=== PATIENT | male | born 2000 | race African-American/Black ===

== ENCOUNTER 2021-02-07 17:01 | Emergency (ER) | payer OTHER, SELFPAY ==
[2021-02-07 17:15] VITALS: BP 156/94; PULSE 95; RESP 18; TEMP 36.6; O2SAT 98; BMI 35.5
--- NOTE | 2021-02-07 19:33 | ED_ITS ---
HPI - Skin/Abscess/Foreign Bdy <Madison Duffy PA-C - Last Filed: 02/07/21 19:38> General Chief complaint: Skin/Abscess/Foreign Body Stated complaint: Allergic Reaction, Discoloration of the Skin Time Seen by Provider: 02/07/21 17:50 Source: patient Mode of arrival: Ambulatory Limitations: no limitations History of Present Illness HPI narrative: 21-year-old male who presents to the ER complaining of rash to the bilateral knuckles that has been ongoing for the last 8 days. Denies for erythema, itching. States he has been using topical hydrocortisone over the last 2 days without relief. He works as a mechanical design drafter and reported rash after contact with products. Related Data Previous Rx's Medication Instructions Recorded triamcinolone acetonide 0.025 % 1 applic TOPICAL BID PRN #15 g 02/07/21 topical ointment Allergies Allergy/AdvReac Type Severity Reaction Status Date / Time No Known Drug Allergies Allergy Verified 02/07/21 17:18 Review of Systems <Madison Duffy PA-C - Last Filed: 02/07/21 19:38> Review of Systems Narrative: General: denies fever, chills MSK: denies joint pain, muscle weakness Skin: Reports rash, denies itching Neuro: denies numbness, tingling Patient History <Madison Duffy PA-C - Last Filed: 02/07/21 19:38> Social History Smoking Status: Current every day smoker Smoking Status: Current every day smoker alcohol intake frequency: a few times a month Substance Use Type: does not use Exam <Madison Duffy PA-C - Last Filed: 02/07/21 19:38> Narrative Exam Narrative: Independently reviewed vitals signs and nursing notes. General: Awake, alert, nontoxic, no cardiorespiratory distress Head/Neck: Atraumatic, neck full range of motion Eyes: EOMI, conjunctiva normal Nose: nares patent, no rhinorrhea Cardio: Regular rate and rhythm, no peripheral edema Respiratory: respirations unlabored without wheezing, stridor, or rales. No retractions. GI: Abdomen soft, nontender MSK: Moves all extremities, neurovascularly intact Skin: Normal capillary refill, mild discoloration and dry skin overlying the bilateral dorsal aspects of the MCP joints. No interdigital rash or erythema. No signs of secondary bacterial or infection. Neuro: Normal speech and cognition, normal gait Initial Vital Signs Initial Vital Signs: Vital Signs Temperature 98 F 02/07/21 17:15 Pulse Rate 95 H 02/07/21 17:15 Respiratory Rate 18 02/07/21 17:15 Blood Pressure 156/94 H 02/07/21 17:15 Pulse Oximetry 98 02/07/21 17:15 <Cezar Douglas MD - Last Filed: 04/05/21 07:45> Initial Vital Signs Initial Vital Signs: Vital Signs Temperature 98 F 02/07/21 17:15 Pulse Rate 95 H 02/07/21 17:15 Respiratory Rate 18 02/07/21 17:15 Blood Pressure 156/94 H 02/07/21 17:15 Pulse Oximetry 98 02/07/21 17:15 Course <Madison Duffy PA-C - Last Filed: 02/07/21 19:38> Vital Signs Vital signs: Vital Signs - 8 hr 02/07/21 17:15 Temperature 98 F Pulse Rate 95 H Respiratory Rate 18 Blood Pressure 156/94 H Pulse Oximetry 98 <Cezar Douglas MD - Last Filed: 04/05/21 07:45> Vital Signs Vital signs: Vital Signs - 8 hr 02/07/21 17:15 Temperature 98 F Pulse Rate 95 H Respiratory Rate 18 Blood Pressure 156/94 H Pulse Oximetry 98 MDM - Skin/Abscess/Foreign Bdy <Madison Duffy PA-C - Last Filed: 02/07/21 19:38> MDM Narrative Medical decision making narrative: 21-year-old male with most likely contact dermatitis secondary to fuel with discoloration and dry skin to bilateral knuckles. No evidence of secondary infection. Prescribed triamcinolone ointment and recommended topical emollients in addition to avoidance/prompt removal of irritant. Please follow up with PCP as directed. Return to clinic/ER precautions discussed with patient for new, not-improving, or worsening symptoms. Discharge Plan Departure Patient Disposition: Home Clinical Impression: Dermatitis Instructions: DI for Atopic Dermatitis-Adult Activity Restrictions/Additional Instructions: *You have been diagnosed with [dermatitis] *What to do: [X] New medication prescriptions sent to your pharmacy: [[facility] [place]] [ ] New medication written as a paper prescription [ ] No new medications given * Please follow-up with your primary care provider in 5-7 days, call for an appointment. Let them know you were seen in the emergency department and that we ask you to be seen in follow-up. * If you do not have a primary care provider, please contact the [facility] Resource line at [phone]. They will ask some questions about your medical history and help to get up with a doctor in the community. * Return to the if you should have any new, worsening, or concerning symptoms, such as [ ]. Prescriptions: New triamcinolone acetonide 0.025 % ointment 1 applic topical BID PRN (Reason: rash) Qty: 15 RF: 0
== END 2021-02-07 18:00 | disposition home or self-care (01) ==
PROVIDERS: Emergency Provider Physician Assistant
DX: L30.9 Dermatitis, unspecified (principal)
CPT/HCPCS: 99281

== ENCOUNTER 2022-04-15 07:43 | Emergency (ER) | payer OTHER, SELFPAY ==
[2022-04-15 08:01] VITALS: BP 167/107; PULSE 84; RESP 20; TEMP 36.8; O2SAT 97; BMI 32.4
--- NOTE | 2022-04-15 08:03 | ED_ITS ---
HPI - General Adult General Chief complaint: Abdominal Pain Stated complaint: black poop Time Seen by Provider: 04/15/22 07:53 Source: patient Mode of arrival: Ambulatory Limitations: no limitations History of Present Illness HPI narrative: Patient is a 22-year-old male who is here for evaluation of approximately 4-6 weeks of left upper quadrant abdominal discomfort and diarrhea and constipation and now having black-colored stools this morning. He states that he does vomit on a regular basis. He states that he ?can not digest food ?all of the symptoms been going on during the past 4-6 weeks. No prior abdominal surgeries. He contacted his medical department and because he was having constipation at the t nancy was placed on MiraLax. He denies nonsteroidal anti-inflammatory use. Is not on any anticoagulation. Does drink on the weekends. Is an otherwise healthy individual. Related Data Previous Rx's Medication Instructions Recorded triamcinolone acetonide 0.025 % 1 applic topical BID PRN rash #15 02/07/21 topical ointment grams ondansetron 4 mg disintegrating 4 mg PO Q6H PRN nausea and 04/15/22 tablet vomiting #14 tabs Allergies Allergy/AdvReac Type Severity Reaction Status Date / Time No Known Drug Allergies Allergy Verified 02/07/21 17:18 Review of Systems Constitutional Constitutional: Reports system reviewed and no additional complaints, except as documented Gastrointestinal Gastrointestinal: Reports system reviewed and no additional complaints, except as documented Genitourinary Genitourinary: Reports system reviewed and no additional complaints, except as documented Musculoskeletal Musculoskeletal: Reports system reviewed and no additional complaints, except as documented Integumentary/Breasts Skin/Breast: Reports system reviewed and no additional complaints, except as documented Hematologic/Lymphatic On Anticoagulants: No Patient History Medical History Healthy adult Social History Smoking Status: Current every day smoker Smoking Status: Current every day smoker alcohol intake frequency: a few times a month Substance Use Type: does not use Exam Initial Vital Signs Initial Vital Signs: Vital Signs Temperature 98.2 F 04/15/22 08:01 Pulse Rate 84 04/15/22 08:01 Respiratory Rate 20 04/15/22 08:01 Blood Pressure 167/107 H 04/15/22 08:01 Pulse Oximetry 97 11/08/22 08:01 Oxygen Delivery Method 04/15/22 08:01 Const General: cooperative and comfortable HENMT Head: normal to inspection and normocephalic Resp Effort & Inspection: normal respiratory effort Auscultation: clear to auscultation bilaterally Cardio Rate: regular rate Rhythm: regular rhythm GI Inspection: normal to inspection and non-distended Palpation: soft and No tender Rectal Exam: visual inspection normal and heme negative stool Skin General: no rashes or lesions noted Neuro General: patient alert, patient awake and moves all extremities Extrem General: normal to inspection and capillary refill normal Psych Appearance: grossly normal Course Orders Ordered: ED Orders 04/15/22 08:04 CT abdomen pelvis w con Stat Complete Blood Count AUTO DIFF Stat Comprehensive Metabolic Panel Stat Lipase Stat Discontinued Medications Sodium Chloride (Normal Saline 0.9%) 1,000 mls @ 1,000 mls/hr IV BOLUS ONE Stop: 04/15/22 09:02 Last Admin: 04/15/22 08:57 Dose: 1,000 mls/hr Vital Signs Vital signs: Vital Signs - 8 hr 04/15/22 08:01 Temperature 98.2 F Pulse Rate 84 Respiratory Rate 20 Blood Pressure 167/107 H Pulse Oximetry 97 Oxygen Delivery Method Room Air Medical Decision Making Lab Data Result diagrams: 04/15/22 08:08 04/15/22 08:08 Labs: Lab Results 04/15/22 04/15/22 Range/Units 08:08 08:08 WBC 4.6 (4.5-11.0) X10^3/uL RBC 4.92 (4.5-5.9) X10^6/uL Hgb 14.8 (13.5-17.5) g/dL Hct 44.3 (41-53) % MCV 90.0 (80-100) fL MCH 30.1 (26-34) PG MCHC 33.4 (30-36) % RDW 15.0 H (11.6-14.8) % Plt Count 229 (150-400) X10^3/uL Neut % (Auto) 51.1 (50-75) % Lymph % (Auto) 31.9 (25-40) % Crisp % (Auto) 14.1 H (3-14) % Eos % (Auto) 1.5 L (2-4) % Baso % (Auto) 1.4 (0-2) % Neut # (Auto) 2300 (2613-7558) /uL Lymph # (Auto) 1500 (1732-9933) /uL Crisp # (Auto) 600 (0-900) /uL Eos # (Auto) 100 (0-450) /uL Baso # (Auto) 100 (0-100) /uL Sodium 143 (137-145) mmol/L Potassium 4.0 (3.4-5.1) mmol/L Chloride 98 (98-107) mmol/L Carbon Dioxide 33 H (22-32) mmol/L BUN 8 L (9-20) mg/dL Creatinine 0.83 (0.66-1.25) mg/dL Estimated GFR > 60 (>60) mL/min BUN/Creatinine Ratio 9.6 (6-22) Glucose 98 (70-100) mg/dL Calcium 8.6 (8.4-10.2) mg/dL Total Bilirubin 0.3 (0.2-1.3) mg/dL AST 47 (17-59) IU/L ALT 31 (<50) IU/L Alkaline Phosphatase 62 (38-126) U/L Total Protein 7.6 (6.3-8.2) g/dL Albumin 4.2 (3.5-5.0) g/dL Globulin 3.4 (1.7-4.1) g/dL Albumin/Globulin Ratio 1.2 (1.0-2.8) Lipase 110 (23-300) U/L Imaging Data CT scan - abdomen/pelvis: Radiologist's Impression: [address] [address] [address] Scan Report Signed Patient: Adria Hastings MR#: [id number] : 2000 Acct:[id number] Age/Sex: 22 / M Date of Service: 04/15/22 Loc: ED Accession Number: [id number] ?? Procedure: CT abdomen pelvis w con Ordering Provider: Lg Morales D.O. PROCEDURE:? CT ABDOMEN PELVIS W CON ? INDICATIONS:? Left-sided abdominal pain with black colored stool ? TECHNIQUE:? After the administration of IV contrast, axial sections were acquired from the lung bases to the pubic symphysis.? Coronal and sagittal reformats were performed.? For radiation dose reduction, the following was used:? automated exposure control, adjustment of mA and/or kV according to patient size. ? COMPARISON:? None. ? FINDINGS:? Image quality:? Excellent.? ? Lung bases:? Unremarkable.? ? Heart:? No significant findings. ? ? ABDOMEN: Liver:? Liver is enlarged measuring 18 cm with diffuse steatosis.? ? Gallbladder:? Unremarkable.? ? Biliary ducts:? Unremarkable.? ? Pancreas:? Unremarkable.? ? Spleen:? Unremarkable.? ? Adrenal Glands:? Unremarkable.? ? Kidneys and Ureters:? Unremarkable.? ? ? Stomach and Bowel:? Stomach, small bowel loops, and colon are nonobstructive.? There is a diffuse appearance of rectal thickening best seen on series 2, image 78. There is a small focal area of descending colon seen on series 2, image 60 demonstrating thickening with very minimal pericolonic inflammatory change.? Peritoneum:? No abnormal intraperitoneal fluid.? No free air.? ? Ventral Wall: ? No hernia.? Abdominal Nodes:? No retroperitoneal or mesenteric adenopathy by size criteria.? Vessels:? Aorta and inferior vena cava are normal in size.? ? PELVIS: Pelvic Organs:? Unremarkable.? ? Bladder:? Unremarkable.? ? Pelvic Nodes: No enlarged lymph nodes.? Miscellaneous: No inguinal hernias are seen. ? ? ? Bones:? Unremarkable.? IMPRESSION:? ? Short segment loop of descending colon with very minimal appearance of pericolonic inflammatory change.? This could represent a small segment of colitis possibly secondary to infection or inflammation.? No diverticula are identified within the region. ? Mild appearance of circumferential thickening at the rectum overall nonspecific.? This could be secondary to incomplete distention.? However, follow-up is recommended to exclude presence of underlying mass lesion.? ? ? Dictated by: Angie Marie M.D. on 04/15/2022 at 8:44 ? ? Approved by: Angie Marie M.D. on 04/15/2022 at 8:49?? [facility] Narrative Medical decision making narrative: CT scan shows colitis but no other surgical pathology. He has a follow-up with his medical department next week. There is no indication for antibiotics. He is not anemic. Was sent home with [facility]. He was informed that he should keep his appointment his medical department in to discuss the indications for referral to see Gastroenterology and to have a colonoscopy. He was given return precautions. He expressed understanding and agreement. Discharge Plan Departure Patient Disposition: Home Clinical Impression: Colitis Instructions: DI for Colitis Activity Restrictions/Additional Instructions: I do recommend that you use the nausea medicine as needed and as directed. Keep your appointment that you have with your medical department. Talk with them about the indications for referral to see Gastroenterology into have a colonoscopy. Return to the emergency department for any new or worsening symptoms. Prescriptions: New ondansetron 4 mg tablet,disintegrating 4 mg PO Q6H PRN (Reason: nausea and vomiting) Qty: 14 0RF No Action triamcinolone acetonide 0.025 % ointment 1 applic topical BID PRN (Reason: rash) Qty: 15 0RF Referrals: ProviderLiyah [Primary Care Provider] -
--- NOTE | 2022-04-15 08:04 | DI.CT.S_ITS ---
PROCEDURE: CT ABDOMEN PELVIS W CON INDICATIONS: Left-sided abdominal pain with black colored stool TECHNIQUE: After the administration of IV contrast, axial sections were acquired from the lung bases to the pubic symphysis. Coronal and sagittal reformats were performed. For radiation dose reduction, the following was used: automated exposure control, adjustment of mA and/or kV according to patient size. COMPARISON: None. FINDINGS: Image quality: Excellent. Lung bases: Unremarkable. Heart: No significant findings. ABDOMEN: Liver: Liver is enlarged measuring 18 cm with diffuse steatosis. Gallbladder: Unremarkable. Biliary ducts: Unremarkable. Pancreas: Unremarkable. Spleen: Unremarkable. Adrenal Glands: Unremarkable. Kidneys and Ureters: Unremarkable. Stomach and Bowel: Stomach, small bowel loops, and colon are nonobstructive. There is a diffuse appearance of rectal thickening best seen on series 2, image 78. There is a small focal area of descending colon seen on series 2, image 60 demonstrating thickening with very minimal pericolonic inflammatory change. Peritoneum: No abnormal intraperitoneal fluid. No free air. Ventral Wall: No hernia. Abdominal Nodes: No retroperitoneal or mesenteric adenopathy by size criteria. Vessels: Aorta and inferior vena cava are normal in size. PELVIS: Pelvic Organs: Unremarkable. Bladder: Unremarkable. Pelvic Nodes: No enlarged lymph nodes. Miscellaneous: No inguinal hernias are seen. Bones: Unremarkable. IMPRESSION: Short segment loop of descending colon with very minimal appearance of pericolonic inflammatory change. This could represent a small segment of colitis possibly secondary to infection or inflammation. No diverticula are identified within the region. Mild appearance of circumferential thickening at the rectum overall nonspecific. This could be secondary to incomplete distention. However, follow-up is recommended to exclude presence of underlying mass lesion. Dictated by: Angie Marie M.D. on 04/15/2022 at 8:44 Approved by: Angie Marie M.D. on 04/15/2022 at 8:49
[2022-04-15 08:32] LABS: Add Manual Diff / Slide Review NO; Basophils Absolute Auto 100 /uL (0-100); Basophils Percent Auto 1.4 % (0-2); Eosinophils Absolute Auto 100 /uL (0-450); Eosinophils Percent Auto 1.5 % (2-4); Hematocrit 44.3 % (41-53); Hemoglobin 14.8 g/dL (13.5-17.5); Lymphocytes Absolute Auto 1500 /uL (1100-4500); Lymphocytes Percent Auto 31.9 % (25-40); Mean Corpuscular HGB Conc 33.4 % (30-36); Mean Corpuscular Hemoglobin 30.1 PG (26-34); Monocytes Absolute Auto 600 /uL (0-900); Monocytes Percent Auto 14.1 % (3-14); Neutrophils Absolute Auto 2300 /uL (1500-7000); Neutrophils Percent Auto 51.1 % (50-75); Platelet Count 229 X10^3/uL (150-400); Red Blood Cell Count 4.92 X10^6/uL (4.5-5.9); White Blood Cell Count 4.6 X10^3/uL (4.5-11.0)
[2022-04-15 08:39] LABS: Alanine Aminotransferase 31 IU/L (<50); Albumin 4.2 g/dL (3.5-5.0); Albumin Globulin Ratio 1.2 (1.0-2.8); Alkaline Phosphatase 62 U/L (38-126); Aspartate Aminotransferase 47 IU/L (17-59); BUN Creatinine Ratio 9.6 (6-22); Bilirubin Total 0.3 mg/dL (0.2-1.3); Blood Urea Nitrogen 8 mg/dL (9-20); Calcium 8.6 mg/dL (8.4-10.2); Carbon Dioxide 33 mmol/L (22-32); Chloride 98 mmol/L (98-107); Estimated Glomerular Filt Rate > 60 mL/min (>60); Globulin 3.4 g/dL (1.7-4.1); Glucose 98 mg/dL (70-100); HEMOLYSIS 29 (0-50); Lipase 110 U/L (23-300); Sodium 143 mmol/L (137-145); Total Protein 7.6 g/dL (6.3-8.2)
[2022-04-15] MEDS: SODIUM CHLORIDE 0.9% 1,000 ML 1000 ML IV (08:57)
[2022-04-15 09:20] VITALS: BP 134/74; PULSE 77; RESP 16; O2SAT 99
== END 2022-04-15 09:20 | disposition home or self-care (01) ==
PROVIDERS: Emergency Provider Emergency Medicine
DX: K52.9 Noninfective gastroenteritis and colitis, unspecified (principal)
CPT/HCPCS: 36415; 74177; 80053; 83690; 85025; 99284; Q9967

== ENCOUNTER 2022-04-23 08:44 | Emergency (ER) | payer OTHER, SELFPAY ==
[2022-04-23 08:45] VITALS: BP 179/101; PULSE 74; RESP 14; TEMP 37; O2SAT 97; BMI 32.4
--- NOTE | 2022-04-23 08:50 | ED_ITS ---
HPI - Extremity Injury (Upper) General Chief Complaint: Wound/Laceration Stated Complaint: left hand ring finger injury Thursday Time Seen by Provider: 04/23/22 08:46 History of Present Illness HPI narrative: 22-year-old male nonsmoker with noncontributory medical history presents for connie luation of an injury suffered to the finger pad of his left ring finger yesterday morning. 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 He had some bleeding yesterday but no longer. He has been putting Neosporin on it.He went to his flight surgeon who sent him here. He denies numbness, tingling or weakness. Denies any chest pain or shortness of breath he is otherwise well and free of complaint. Related Data Previous Rx's Medication Instructions Recorded triamcinolone acetonide 0.025 % 1 applic topical BID PRN rash #15 02/07/21 topical ointment grams ondansetron 4 mg disintegrating 4 mg PO Q6H PRN nausea and 04/15/22 tablet vomiting #14 tabs cephalexin 500 mg capsule 500 mg PO BID #10 caps 04/23/22 Allergies Allergy/AdvReac Type Severity Reaction Status Date / Time No Known Drug Allergies Allergy Verified 02/07/21 17:18 Review of Systems Review of Systems Narrative: GENERAL: Denies chills, fatigue, malaise, fever, sweats. HEENT: Denies sinus pain, ear pain, sore throat, difficulty swallowing, dizziness. RESPIRATORY: Denies dyspnea, cough, wheezing, hemoptysis, sputum. CARDIOVASCULAR: Denies chest pain, palpitations, orthopnea, edema, GASTROINTESTINAL: Denies nausea, vomiting, abdominal pain, diarrhea, constipation, melena. : Denies dysuria, frequency, incontinence, hematuria, urinary retention. MUSCULOSKELETAL: denies weakness, joint pain, or bony pain SKIN: See HPI NEUROLOGIC: Denies weakness, headache, numbness, change in speech, confusion, seizures, incoordination. PSYCHIATRIC: No concerning psychosocial issues. 12 point review of systems is negative except for those stated above Patient History Medical History Healthy adult Social History Smoking Status: Current every day smoker Smoking Status: Current every day smoker alcohol intake frequency: a few times a month Substance Use Type: does not use Exam Narrative Exam Narrative: GEN: AOx3 and in mild distress EYES: Pupils are equal, round, and reactive to light and accommodation. Extraoccular muscles are intact bilaterally. There is no subconjunctival hemorrhage or exudate. CHEST: Lungs are clear to auscultation bilaterally and free of wheezes, rales, or rhonchi. Heart rate is regular rhythm, there are no murmurs, clicks, rubs, or gallops. There is no chest wall tenderness. ABD: Abdomen is soft and nontender. There is no guarding or rebound. Bowel sounds are normal in all 4 quadrants. There is no mass or organomegaly. EXT: 0.5x1.0cm superficial abrasion to finger pad of left 4th finger. No evidence of foreign body. No active bleeding Full painless ROM of all extremities with no loss of sensation or strength. SKIN: Warm, pink, and dry. No erythema or rash Discharge Plan Departure Patient Disposition: Home Clinical Impression: Finger laceration Qualifiers: Encounter type: initial encounter Finger: ring finger Damage to nail status: without damage Foreign body presence: without foreign body Laterality: left Qualified Code(s): S61.215A - Laceration without foreign body of left ring finger without damage to nail, initial encounter Instructions: DI for Minor Laceration Activity Restrictions/Additional Instructions: *You have been diagnosed with [superficial abrasion type laceration of left 4th finger, not requiring repair. ] *What to do: *Please continue to take your regular medications as directed. [ x] New medication prescriptions sent to your pharmacy: [[facility]] [ ] New medication written as a paper prescription [ ] No new medications given *Please follow up with your primary care provider in 2-3 days, call for an appointment. Let them know you were seen in the Emergency Department and that we ask that you be seen in follow up. We will electronically transmit a record of today's note if your PCP is in our system *Return to Emergency Department if you should have any new, worsening or concerning symptoms, such as [fever greater than 101 F, shaking chills, worsening pain, persistent vomiting or other bothersome symptoms] Prescriptions: New cephalexin 500 mg capsule 500 mg PO BID Qty: 10 0RF No Action triamcinolone acetonide 0.025 % ointment 1 applic topical BID PRN (Reason: rash) Qty: 15 0RF ondansetron 4 mg tablet,disintegrating 4 mg PO Q6H PRN (Reason: nausea and vomiting) Qty: 14 0RF Referrals: ProviderLiyah [Primary Care Provider] - Stand Alone Forms: Work Release Note
== END 2022-04-23 09:03 | disposition home or self-care (01) ==
PROVIDERS: Emergency Provider Emergency Medicine
DX: S61.215A Laceration without foreign body of left ring finger without damage to nail, initial encounter (principal); W26.8XXA Contact with other sharp object(s), not elsewhere classified, initial encounter
CPT/HCPCS: 99281